=== PATIENT | male | born 1980 | race Caucasian/White ===

== ENCOUNTER 2019-01-01 17:15 | Emergency (ER) | payer BC ==
[~2019-01-01] VITALS: Ht 185.4 cm; Wt 115.7 kg
[2019-01-01] MEDS ORDERED: PENICILLIN V P500 MG PO (17:44)
== END 2019-01-01 17:58 | disposition home or self-care (01) ==
LOC: ED 17:15
DX: K04.7 Periapical abscess without sinus (principal); E11.9 Type 2 diabetes mellitus without complications; F17.200 Nicotine dependence, unspecified, uncomplicated
CPT/HCPCS: 99282

== ENCOUNTER 2019-05-11 17:18 | Emergency (ER) | payer OTHER, BC ==
[~2019-05-11] VITALS: Ht 185.4 cm; Wt 136.1 kg
[~2019-05-11 17:18] MED LIST: PENICILLIN V P500 MG PO
[2019-05-11] MEDS ORDERED: VITAMIN D50000 UNI1 PO (17:52)
[2019-05-11] MEDS ORDERED: NORCO 7.5-3251 EACH PO (20:36)
[2019-05-11] MEDS ORDERED: ONDANSETRON ODT8 MG PO (20:36)
== END 2019-05-11 21:02 | disposition home or self-care (01) ==
LOC: ED 17:18
PROC: 0HQ2XZZ Repair Right Ear Skin, External Approach (ICD-10-PCS; principal; 2019-05-11)
DX: S02.82XA Fracture of other specified skull and facial bones, left side, initial encounter for closed fracture (principal); S02.40FA Zygomatic fracture, left side, initial encounter for closed fracture; S01.311A Laceration without foreign body of right ear, initial encounter; F17.200 Nicotine dependence, unspecified, uncomplicated; W22.8XXA Striking against or struck by other objects, initial encounter
CPT/HCPCS: 12013; 70450; 70486; 99283-25; J2270